=== PATIENT | female | born 1995 | race Caucasian/White ===

== ENCOUNTER 2016-09-03 09:39 | Emergency (ER) | payer SELFPAY ==
[2016-09-03 09:52] VITALS: BP 130/84
--- NOTE | 2016-09-03 11:15 | Emergency Department Report ---
Chief Complaint: Extremity Injury, Upper Stated Complaint: ANXIETY/DEHYDRATION/BLOOD CLOT - HPI History of Present Illness: Patient presents for eval of knot to her left arm noticed this morning. Denies pain, swelling, redness, difficulty moving/using arm, red streaks going away from site. Denies recent long distance travel, oral contraceptive use. Denies hx of blood clot. States had anxiety attack yesterday that have resolved. Denies depression, SI/HI. Denies other complaints/concerns today. LMP 2 weeks ago. - ROS Review of Systems: Other systems reviewed and negative. - Exam Vital Signs: Vital Signs 09/03/16 09:47 Temperature 97.4 F L Pulse Rate 81 Respiratory 16 Rate Blood Pressure 130/84 O2 Sat by Pulse 100 Oximetry Physical Exam: General: NAD. Extremities: 4 extremities intact. 0.5 cm lymph node palpated in b/l axilla region of media aspect of left upper forearm. No edema, erythema, tenderness, lymphangitis. FROM. 5/5 strength against resistance. Rests of exam unremarkable. Heart: RRR. Lungs: Equal sounds b/l. Neuro: AAO x3. No loss or decreased sensation. No obvious focal neuro deficits. Psych: Normal mood and affect. Responds appropriately to questions. MSE screening note: Focused history and physical exam performed. Due to findings the following was ordered: ED Medical Decision Making - Medical Decision Making 21 YOF with normal lymph node distribution. Patient is stable. Patient reassurance provided. She is instructed on the s/sx of blood clot and to seek immediate medical care if she experiences any. Patient instructed to follow up with her PCP for this. She denies anxiety attack now and is instructed to follow up with [facility] if she needs to speak with a psychiatrist. She is aware to return to ED for any new or worsening condition. She verbalized understanding and is agreeable to plan. ED Disposition for MSE Condition: Stable
== END 2016-09-03 11:05 | disposition left against medical advice (07) ==
LOC: ED 09:39
DX: F41.9 Anxiety disorder, unspecified (principal); M79.602 Pain in left arm; Z53.21 Procedure and treatment not carried out due to patient leaving prior to being seen by health care provider